=== PATIENT | male | born 2000 | race Caucasian/White ===

== ENCOUNTER 2024-03-18 19:49 | Emergency (ER) | payer OTHER ==
[2024-03-18 19:57] VITALS: BP 113/63; PULSE 67; RESP 18; TEMP 98.3; BMI 23.8
[2024-03-18] MEDS ORDERED: LACTULOSE 20 GM/30 ML UDC (FOR ORAL USE ONLY) ONE (20:48)
[2024-03-18] MEDS: SODIUM PHOSPHATE/NA BIPHOS 133 ML ENEMA PR ONE (20:58)
[2024-03-18] MEDS: LACTULOSE 20 GM/30 ML UDC (FOR ORAL USE ONLY) PO ONE (20:58)
== END 2024-03-18 23:01 | disposition home or self-care (01) ==
LOC: JER 19:49 → EDSEX 19:49 → JER 23:01
DX: K59.09 Other constipation (principal); K62.89 Other specified diseases of anus and rectum; R10.13 Epigastric pain
CPT/HCPCS: 74018-TC-FY; 99283-25